=== PATIENT | male | born 1990 ===

== ENCOUNTER 2018-08-04 09:35 | Observation (INO) ==
[2018-08-04] MEDS ORDERED: DOCUSATE SODIUM 100 MG CAPSULE PO PRN (13:42)
[2018-08-04] MEDS ORDERED: ACETAMINOPHEN 325 MG TABLET PO PRN (13:42)
[2018-08-04] MEDS ORDERED: LORazepam 2 MG/1 ML VIAL IV PRN (13:46)
[2018-08-04 14:07] LABS: Basophils % 0.3 % (0.0-0.8); Hematocrit 45.3 VOL% (42.0-52.0); Hemoglobin 14.5 GM/DL (14.0-18.0); Immature Granulocytes % 0.3 %; Immature Granulocytes Absolute 0.02 #; Lymphocytes # 0.8 10*3/uL (1.4-4.0); Lymphocytes % 12.3 % (21.2-54.2); Mean Corpuscular Volume 89.7 FL (87-102); Mean Platelet Volume 9.3 FL (9.6-12.0); Monocytes % 1.6 % (1.7-12.7); Neutrophils % 85.5 % (38.7-73.9); Platelet Count 251 T/CUMM (130-400); Red Blood Count 5.05 MC/CUMM (3.8-5.5); Red Cell Distribution Width 14.4 % (9.3-17.3); White Blood Count 6.1 T/CUMM (4-12)
[2018-08-04 14:36] LABS: Albumin 4.1 G/DL (3.4-5.0); Bilirubin,Total 0.6 MG/DL (0.2-1.0); Calcium 8.6 MG/DL (8.5-10.1); Risk Ratio 6.69; Thyroid Stimulating Hormone 0.696 uIU/ml (0.358-3.74); Total Protein 8.6 G/DL (6.4-8.3)
[2018-08-04] MEDS ORDERED: HydrOXYzine PAMOATE 25 MG CAPSULE PO PRN (15:19)
[2018-08-04] MEDS ORDERED: THIAMINE INJ 100 MG, FOLIC ACID INJ 1 MG, MULTIVITAMIN INJ 10 ML in SODIUM CHLORIDE 0.9... IV SCH (16:00)
[2018-08-04 16:10] LABS: Hepatitis B Core IgM Quant < 0.05 Index; Hepatitis B Surface Ag Quant < 0.10 Index; Hepatitis B Surface Ag Result Negative (Negative); Hepatitis C Virus Ab Quant 0.09 Index; Hepatitis C Virus Ab Result Negative (Negative)
[2018-08-04] MEDS: SODIUM CHLORIDE 0.9% 1,000 ML IV SCH (17:14)
[2018-08-04] MEDS ORDERED: MORPHINE 4 MG/1 ML VIAL IV PRN (18:00)
[2018-08-04 19:21] LABS: Apearance,Urine CLEAR (Clear); Bilirubin,Urine Negative (Negative); Blood, Urine Negative (Negative); Glucose,Urine (UA) Negative (Negative); Ketones,Urine 20 mg/dL (Negative); Mucus,Urine Occasional /LPF (Occasional); Nitrite,Urine Negative (Negative); Protein,Urine Negative; RBC,Urine 1 /HPF (0-4); Urine Color Yellow (Yellow); Urine Specific Gravity 1.009 (1.001-1.035); Urine Urobilinogen < 2.0 EU/DL (0.2-1.0); WBC,Urine <1 /HPF (0-6)
[2018-08-04] MEDS ORDERED: ATORVASTATIN 10 MG TABLET PO SCH (21:00)
[2018-08-04] MEDS ORDERED: ENOXAPARIN 40 MG/0.4 ML SYRINGE SUBCUT SCH (21:00)
[2018-08-04] MEDS ORDERED: EZETIMIBE 10 MG TABLET PO SCH (21:00)
[2018-08-04 21:49] LABS: Barbiturates Screen,Urine Negative (Negative); Benzodiazepines Screen,Urine Negative (Negative); Cannabinoid Screen,Urine Positive (Negative); Opiate Screen,Urine Negative (Negative); Phencyclidine Screen,Urine Negative (Negative)
[2018-08-05 06:32] LABS: Basophils # 0.1 10*3/uL (0.0-0.2); Basophils % 1.1 % (0.0-0.8); Eosinophils # 0.1 10*3/uL (0.0-0.87); Eosinophils % 0.7 % (0.00-10.9); Immature Granulocytes % 0.4 %; Immature Granulocytes Absolute 0.03 #; Lymphocytes # 1.8 10*3/uL (1.4-4.0); Lymphocytes % 25.5 % (21.2-54.2); Mean Corpuscular Volume 92.1 FL (87-102); Mean Platelet Volume 9.7 FL (9.6-12.0); Monocytes % 11.1 % (1.7-12.7); Neutrophils % 61.2 % (38.7-73.9); Platelet Count 233 T/CUMM (130-400); Red Blood Count 4.56 MC/CUMM (3.8-5.5); Red Cell Distribution Width 14.6 % (9.3-17.3); White Blood Count 7.2 T/CUMM (4-12)
[2018-08-05 07:07] LABS: Albumin 3.5 G/DL (3.4-5.0); Bilirubin,Total 0.6 MG/DL (0.2-1.0); Calcium 8.6 MG/DL (8.5-10.1); Osmolality,Calculated 273.5 MOS/KG (273-304); Total Protein 7.4 G/DL (6.4-8.3)
[2018-08-05] MEDS ORDERED: PANTOPRAZOLE 40 MG VIAL IV SCH (09:00)
[2018-08-05 12:54] VITALS: BP 96/45
[2018-08-05] MEDS ORDERED: MULTIVITAMIN (CENTRUM) TABLET PO SCH (13:00)
[2018-08-05] MEDS ORDERED: THIAMINE 100 MG TABLET PO SCH (13:00)
[2018-08-05] MEDS ORDERED: FOLIC ACID 1 MG TABLET PO SCH (13:00)
[2018-08-05] MEDS: SODIUM CHLORIDE 0.9% 1,000 ML IV SCH (14:19)
== END 2018-08-05 15:30 | disposition home or self-care (01) ==
LOC: N.2E → SUATTDRO 12:19
PROVIDERS: ADMIT Internal Medicine; ATTEND Internal Medicine